=== PATIENT | male | born 1995 | race Caucasian/White ===

== ENCOUNTER 2024-03-19 15:38 | Emergency (ER) | payer SELFPAY ==
--- NOTE | ~2024-03-19 | XR_ITS ---
EXAMINATION: XR finger 1st RT min 2V DATE: 03/19/2024 15:55 INDICATION: Right thumb injury. TECHNIQUE: 3 views of right thumb were obtained. COMPARISON: None. FINDINGS: Alignment is normal. No fracture. Joint spaces are normal. There is a laceration of the dis silvina thumb. IMPRESSION: 1. No fracture or radiopaque foreign body. Reviewed, dictated and finalized at location B.
[2024-03-19 15:48] VITALS: BP 143/72; PULSE 65; RESP 16; TEMP 36.7; O2SAT 100
--- NOTE | 2024-03-19 16:06 | ED_ITS ---
HPI - Extremity Injury (Upper) General Chief Complaint: Extremity Injury, Upper Stated Complaint: RT Thumb Injury Time Seen by Provider: 03/19/24 15:50 Source: patient, RN notes reviewed and old records reviewed Mode of arrival: ambulatory Limitations: no limitations History of Present Illness HPI narrative: 28-year-old male presents to the [facility] with a right thumb injury. Patient took off the tip of his thumb with a table saw. Bleeding is controlled Per medical record last Tdap was 2008. Will update Patient in no acute distress. Treatments prior to arrival: bandage and other (pressure) Related Data Allergies Allergy/AdvReac Type Severity Reaction Status Date / Time Penicillins AdvReac Intermediate Nausea and Verified 03/19/24 16:20 Vomiting Review of Systems Review of Systems: All systems reviewed & are unremarkable except as noted in HPI and below Constitutional: Constitutional: Reports no additional constitutional complaints ENT: Reports system reviewed and no additional complaints, except as documented Cardiovascular: Cardiovascular: Reports no additional cardiovascular complaints, Denies chest pain and Denies dyspnea Respiratory: Respiratory: Reports no additional respiratory complaints, Denies chest congestion, Denies cough and Denies dyspnea Gastrointestinal: Gastrointestinal: Reports no additional gastrointestinal complaints, Denies abdominal pain, Denies nausea and Denies vomiting Musculoskeletal: Musculoskeletal: Reports as per HPI Integumentary/Breasts: Skin/Breast: Reports system reviewed and no additional complaints, except as docu PMFSH Past Medical History Medical History BMI 32.0-32.9,adult Cervical radiculitis Elevated serum creatinine Encounter to establish care Kidney pain Muscle spasm Neck Pain Family History Family History Mother Alcohol abuse Social History Social History Smoking status: Never smoker Alcohol intake: never Substance use: never Current Housing: Decline to Answer Concerned About Future Housing: Decline to Answer Difficulty Paying Gas/Electric Bills: Decline to Answer Difficulty Paying for Meds: Decline to Answer Currently Unemployed: Decline to Answer Education: Decline to Answer Difficulty w/ Childcare or Family Care: Decline to Answer Comments At the time of my signature, I reviewed and agree with the nursing past medical, surgical, social, and family history. There is no relevant family history pertinent to the patient complaint. Exam Const: General: cooperative, healthy appearing, comfortable, no acute distress, well developed, alert and well nourished Nutritional Appearance: well nourished Orientation/consciousness: patient oriented x3 Limitations: no limitations HENMT: Head: normal to inspection Ears: hearing grossly normal bilaterally and external ears normal Face/Nose/Sinus: Normal external nose present, normal facial exam and face symmetric Face and sinus: normal facial exam and face symmetric Eyes: General: appearance normal, both eyes and all related structures Alignment and Position: alignment normal Periorbital: periorbital findings normal Neck: Neck: normal visual inspection, full ROM, no lymphadenopathy and no meningeal signs Chest: Chest palpation & inspection: normal inspection of the chest Resp: Effort & Inspection: normal respiratory effort and able to speak in complete sentences Cardio: Rate: regular rate Skin: General skin exam: normal color and no rashes or lesions noted Lesions: no lesions Rashes: no rashes Wounds: wounds noted (Avulsion right thumb distal aspect) Neuro: General: patient oriented x3, gait normal, tone normal, moves all extremities and no meningeal signs Cognition (Neuro): normal cognition Speech: normal speech Gait exam (Neuro): Normal gait present Extrem: General: normal to inspection, full ROM, capillary refill normal and normal gait Psych: Appearance: grossly normal and well kempt Mental Status: mental status grossly normal Speech and movement: Normal speech and movement present and Clear speech present Affect: normal affect Attitude: cooperative Course Course Level of Care: Express Care Visit Vital Signs Vital signs: Vital Signs Temperature 98.1 F 03/19/24 15:48 Pulse Rate 65 03/19/24 15:48 Respiratory Rate 16 03/19/24 15:48 Blood Pressure 143/72 H 03/19/24 15:48 Pulse Oximetry 100 03/19/24 15:48 Oxygen Delivery Room Air 03/19/24 15:48 Temperature 98.1 F 03/19/24 15:48 Pulse Rate 65 03/19/24 15:48 Respiratory Rate 16 03/19/24 15:48 Blood Pressure 143/72 H 03/19/24 15:48 Pulse Oximetry 100 03/19/24 15:48 Oxygen Delivery Room Air 03/19/24 15:48 Reviewed MDM - Extremity Injury (Upper) MDM Narrative Medical decision making narrative: Patient presents with an avulsion to the right thumb Updated tetanus X-ray negative for bone involvement or foreign body Area irrigated with 200 mils of saline. No foreign body. Applied Surigel and f rosa m gauze. Discussed how to change the dressing and stressed the importance of following up. Wound measured approximately 1 x 1 and 0.5 cm. Patient appropriate for outpatient treatment and follow-up Discharge instructions reviewed with patient, as well as provided in writing per nursing staff. The instructions also include specific and strict return/GO TO THE ER as well as f/u information. All questions have been answered, and the patient deny any further questions with discharge and discharge plan. Some parts of this dictation were generated by voice recognition software and may contain typographical and/or grammatical inaccuracies. Differential Diagnosis Differential diagnosis: Likely other (Laceration, avulsion, superficial,) Imaging Data Radiologist's impression: EXAMINATION: XR finger 1st RT min 2V DATE: 03/19/2024 15:55 INDICATION: Right thumb injury. TECHNIQUE: 3 views of right thumb were obtained. COMPARISON: None. FINDINGS: Alignment is normal. No fracture. Joint spaces are normal. There is a laceration of the distal thumb. IMPRESSION: 1. No fracture or radiopaque foreign body. Critical Care Time Critical Care Time Critical Care Time: No Discharge Plan Discharge Clinical Impression: Avulsion of skin of right thumb, Vaccine for [id number], com bined Patient Disposition: Home, Self-Care Condition: Stable Instructions: Antibiotic Form, Skin Avulsion (ED) Additional Instructions: Take antibiotics to reduce the chances of infection You can take Tylenol as needed. If you have more severe pain you can take [place]/Vicodin. In 24-48 hours removed the outer dressing. Leave the inside dressing on the wound. This will help with the healing process Follow-up with your primary care provider or Dr. Arboleda on Friday or Friday for a wound check. For new or worsening symptoms go directly to emergency Patient Language: Dutch Prescriptions: New clindamycin HCl 150 mg capsule 150 mg PO TID 7 Days Qty: 21 0RF Rx Instructions: TAKE WITH 300 MG hydrocodone-acetaminophen 5-325 mg tablet 1 tablet PO Q6H PRN (Reason: pain) Qty: 10 0RF Follow-up/Referrals: Choco Almonte MD [Physician] - 3 Days (Avulsion of skin, right thumb, distal aspect) Christina Casas NP [Primary Care Provider] - 3 Days (Avulsion of right thumb Blood pressure check, 143/72) Stand Alone Forms: Work/School Release IP Time of Disposition: 16:39
[2024-03-19] MEDS: TETANUS,DIPHTHERIA,AC PERTUSSIS ADULT (0.5 ML) BOOSTRIX IM (16:07)
== END 2024-03-19 16:45 | disposition home or self-care (01) ==
PROVIDERS: Emergency Provider Nurse Practitioner; PCP Nurse Practitioner Family
DX: S61.001A Unspecified open wound of right thumb without damage to nail, initial encounter (principal); W31.2XXA Contact with powered woodworking and forming machines, initial encounter; Z23 Encounter for immunization
CPT/HCPCS: 73140; 90471; 90715; 99203; G0463